=== PATIENT | female | born 1975 | race Caucasian/White ===

== ENCOUNTER 2022-06-01 18:35 | Emergency (ER) | payer OTHER ==
[2022-06-01 19:11] LABS: HEMOGLOBIN 13.3 gm/dl (12.3-15.3); RED BLOOD COUNT 4.16 M/UL (4.00-5.10); WHITE BLOOD COUNT 10.1 K/UL (4.5-11.0)
[2022-06-01 19:39] LABS: BUN/CREATININE RATIO 9 (0-10)
== END 2022-06-01 22:30 | disposition home or self-care (01) ==
LOC: ER1 18:35
PROVIDERS: Physician Assistant
DX: I47.1 Supraventricular tachycardia (principal); E87.6 Hypokalemia; I10 Essential (primary) hypertension; Z79.899 Other long term (current) drug therapy
CPT/HCPCS: 71045; 80053; 82550; 82553; 83735; 84439; 84443; 84484; 85025; 93005; 96374; 99285; J0153